=== PATIENT | female | born 1990 | race American Indian/Alaskan Native ===

== ENCOUNTER 2017-06-07 08:18 | Emergency (ER) | payer SELFPAY ==
[2017-06-07 08:27] VITALS: BP 147/95; PULSE 79; RESP 18; TEMP 98.6; O2SAT 99
--- NOTE | 2017-06-07 08:51 | C.PDOC ---
History Of Present Illness 27 y/o female with Hx of HTN presents to ED requesting work note to go back to work. 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 Patient was told she has a high blood pressure and to go home. Patient reports not taking HTN medication 3 days prior to incident and now symptoms have resolved. At ed blood pressure is 147/95. No other complaints at this time Time Seen by Provider: 06/07/17 08:29 Chief Complaint (Nursing): Medical Clearance History Per: Patient History/Exam Limitations: no limitations Onset/Duration Of Symptoms: Days Current Symptoms Are (Timing): Still Present Past Medical History Reviewed: Historical Data, Nursing Documentation, Vital Signs Vital Signs: Last Vital Signs Temp 98.6 F 06/07/17 08:24 Pulse 79 06/07/17 08:24 Resp 18 06/07/17 08:24 BP 147/95 H 06/07/17 08:24 Pulse Ox 99 06/07/17 09:13 - Medical History PMH: HTN (not ion meds) Surgical History: No Surg Hx Family History: States: Hypertension (mom) - Social History Hx Tobacco Use: Yes Hx Alcohol Use: Yes Hx Substance Use: No - Immunization History Hx Tetanus Toxoid Vaccination: Yes Hx Influenza Vaccination: Yes Hx Pneumococcal Vaccination: Yes Review Of Systems Except As Marked, All Systems Reviewed And Found Negative. Constitutional: Negative for: Fever, Chills Cardiovascular: Negative for: Chest Pain Respiratory: Negative for: Shortness of Breath Gastrointestinal: Negative for: Nausea, Vomiting, Diarrhea Skin: Negative for: Rash Physical Exam - Physical Exam Appears: Non-toxic, No Acute Distress Skin: Warm, Dry, No Rash Head: Atraumatic, Normacephalic Eye(s): bilateral: Normal Inspection Oral Mucosa: Moist Neck: Normal ROM, Supple Chest: Symmetrical Cardiovascular: Rhythm Regular, No Murmur Respiratory: Normal Breath Sounds, No Rales, No Rhonchi, No Wheezing Gastrointestinal/Abdominal: Soft, No Tenderness, No Guarding, No Rebound Neurological/Psych: Oriented x3, Normal Speech, Normal Cognition Gait: Steady ED Course And Treatment O2 Sat by Pulse Oximetry: 99 (RA) Pulse Ox Interpretation: Normal Progress Note: Patient denies any headache or dizziness. Discharged in stable condition. Neuro intact, ambulating with steady gait Reassessment Condition: Unchanged Disposition Counseled Patient/Family Regarding: Diagnosis, Need For Followup - Disposition Referrals: [facility] [Outside] [facility] [Outside] Disposition: HOME/ ROUTINE Disposition Time: 08:50 Condition: STABLE Additional Instructions: Follow up with Clinic for further evaluation Take medications as directed Instructions: Hypertensive Crisis (ED) Forms: [facility] (Serbian), Work Excuse - POA Present On Arrival: None - Clinical Impression Clinical Impression: Hypertension, Non compliance w medication regimen - PA / [employer] / Resident Statement MD/DO has reviewed & agrees with the documentation as recorded. - Scribe Statement The provider has reviewed the documentation as recorded by the Scribe Jah Josue All medical record entries made by the Chocoibjim were at my direction and personally dictated by me. I have reviewed the chart and agree that the record accurately reflects my personal performance of the history, physical exam, medical decision making, and the department course for this patient. I have also personally directed, reviewed, and agree with the discharge instructions and disposition.
== END 2017-06-07 09:01 | disposition home or self-care (01) ==
LOC: C.ER 08:18
DX: I10 Essential (primary) hypertension (principal); Z91.19 Patient's noncompliance with other medical treatment and regimen